=== PATIENT | male | born 1935 | race Caucasian/White ===

== ENCOUNTER 2021-03-29 16:16 | Inpatient (IN) ==
[2021-03-29] MEDS: 0.9 % Sodium Chloride 1,000 ML IVC SCH ×2 (17:23→18:54)
[2021-03-29 17:55] LABS: Basophils % 0.2 %; Eosinophils % 0.2 %; Hemoglobin 8.7 g/dL (12.9-16.9); Immature Granulocytes % 1.4 % (0-4); Lymphocytes # 0.8 K/mcL (0.6-4.6); Lymphocytes % 6.6 %; Mean Corpuscular HGB Conc 32.2 g/dL (31.6-35.5); Mean Corpuscular Hemoglobin 33.5 pg (28.0-33.3); Mean Corpuscular Volume 103.8 fL (83.0-100.0); Mean Platelet Volume 9.9 fL (9.4-12.4); Monocytes # 0.5 K/mcL (0.0-1.3); Monocytes % 4.2 %; Neutrophils # 10.2 K/mcL (1.6-8.9); Nucleated Red Blood Cells 0.3 /100 WBC (0); Platelet Count 123 K/mcL (140-400); Red Cell Distribution Width 19.9 % (11.5-14.5); Segmented Neutrophils % 87.4 %; White Blood Count 11.6 K/mcL (4.3-11.1)
[2021-03-29 18:02] LABS: INR 3.8; Prothrombin Time 42.8 Seconds (9.4-12.1)
[2021-03-29 18:04] LABS: VBG HCO3 26 mEq/L (21-27); VBG PCO2 29 mmHg (41-51); VBG PH 7.55 pH Units (7.32-7.42); VBG PO2 19 mmHg (25-50)
[2021-03-29 18:05] LABS: Activated Partial Thrombo Time 36.8 Seconds (26.0-36.0)
[2021-03-29 18:25] LABS: Alanine Aminotransferase 30 Units/L (7-52); Albumin 3.4 g/dL (3.5-5.7); Albumin/Globulin Ratio 1.2 (1.1-2.2); Alkaline Phosphatase 70 Units/L (34-104); Aspartate Amino Transferase 28 Units/L (13-39); BUN/Creatinine Ratio 20 (6-26); Bilirubin,Direct 0.5 mg/dL (0.0-0.2); Bilirubin,Indirect 1.3 mg/dL (0.0-1.0); Bilirubin,Total 1.8 mg/dL (0.3-1.0); Blood Urea Nitrogen 35 mg/dL (8-23); Calcium 8.4 mg/dL (8.6-10.3); Carbon Dioxide 25 mEq/L (23-29); Chloride 98 mEq/L (98-107); Globulin 2.8 g/dL (2.4-3.5); Glucose 171 mg/dL (70-105); Lipase 23 Units/L (11-82); Magnesium 2.2 mg/dL (1.6-2.6); Osmolality,Calculated 292 (280-300); Phosphorous 3.5 mg/dL (2.7-4.5); Sodium 135 mEq/L (136-145); Total Protein 6.2 g/dL (6.4-8.9); Troponin I < 0.03 ng/mL (< 0.04); eGFR For African Americans 46 (> 60); eGFR For Non-African Americans 38 (> 60)
[2021-03-29 19:55] LABS: Bilirubin,Urine Negative (Negative); Blood,Urine Negative (Negative); Clarity,Urine Clear (Clear); Color,Urine Yellow (Yellow); Glucose,Urine (UA) Normal (Normal); Ketones,Urine Negative (Negative); Leukocyte Esterase,Urine Negative (Negative); Nitrite,Urine Negative (Negative); Protein,Urine Trace mg/dL (Neg-Trace); Specific Gravity,Urine 1.015 (1.010-1.025)
[2021-03-29] MEDS ORDERED: Pantoprazole 40 MG VIAL IVP ONE (20:26)
[2021-03-29] MEDS ORDERED: Melatonin 3 MG TABLET PO PRN (21:20)
[2021-03-29] MEDS ORDERED: Ondansetron 4 MG/2 ML VIAL IVP PRN (21:20)
[2021-03-29] MEDS ORDERED: Acetaminophen 325 MG TABLET PO PRN (21:20)
[2021-03-29] MEDS ORDERED: Naloxone 0.4 MG/ML INJ IVP PRN (21:20)
[2021-03-29] MEDS ORDERED: *HR* HYDROcodone/Acet 5/325 mg TABLET PO PRN (21:20)
[2021-03-29] MEDS: Metoprolol XL (24 HR) Succ 25 MG TAB.ER.24H PO SCH (23:37)
[2021-03-29] MEDS: Ringers Solution, Lactated 1,000 ML IVC SCH (23:47)
[2021-03-30 03:15] LABS: Basophils % 0.1 %; Eosinophils % 0.3 %; Hematocrit 22.2 % (37.5-50.1); Hemoglobin 7.2 g/dL (12.9-16.9); Immature Granulocytes % 1.4 % (0-4); Immature Reticulocyte % 37.3 % (11.0-38.0); Lymphocytes # 0.8 K/mcL (0.6-4.6); Lymphocytes % 8.9 %; Mean Corpuscular HGB Conc 32.4 g/dL (31.6-35.5); Mean Corpuscular Volume 104.7 fL (83.0-100.0); Mean Platelet Volume 10.6 fL (9.4-12.4); Monocytes # 0.4 K/mcL (0.0-1.3); Monocytes % 4.4 %; Neutrophils # 7.4 K/mcL (1.6-8.9); Nucleated Red Blood Cells 0.2 /100 WBC (0); Platelet Count 109 K/mcL (140-400); Red Blood Count 2.12 M/mcL (4.19-5.50); Red Cell Distribution Width 20.2 % (11.5-14.5); Retculocyte # 0.05 M/mcL (0.05-0.10); Reticulocyte % 2.4 % (1.6-2.8); Segmented Neutrophils % 84.9 %; White Blood Count 8.7 K/mcL (4.3-11.1)
[2021-03-30 03:22] LABS: INR 2.4; Prothrombin Time 27.4 Seconds (9.4-12.1)
[2021-03-30 03:35] LABS: Albumin 2.7 g/dL (3.5-5.7); Albumin/Globulin Ratio 1.2 (1.1-2.2); Bilirubin,Total 1.4 mg/dL (0.3-1.0); Calcium 7.5 mg/dL (8.6-10.3); Chol/HDL Ratio 4.4 (0-4.9); Globulin 2.3 g/dL (2.4-3.5); Magnesium 2.1 mg/dL (1.6-2.6); Phosphorous 2.7 mg/dL (2.7-4.5)
[2021-03-30 03:43] LABS: % Iron Saturation 28 % (20-55); Iron 57 mcg/dL (65-175); Lactate Dehydrogenase 186 Units/L (140-271); Transferrin 148 mg/dL (203-362)
[2021-03-30 03:55] LABS: Ferritin 98 ng/mL (20-250)
[2021-03-30] MEDS: Pantoprazole 40 MG VIAL IVP SCH ×2 (06:20→17:58)
[2021-03-30] MEDS ORDERED: D5% in Water 1,000 ML IVC PRN (07:31)
[2021-03-30] MEDS ORDERED: *HR* Dextrose 50 % in Water (Vial) 50 ML VIAL IVP PRN (07:31)
[2021-03-30] MEDS ORDERED: Dextrose Gel 15 GM/37.5 ML TUBE PO PRN ×2 (07:31)
[2021-03-30] MEDS: Metoprolol XL (24 HR) Succ 25 MG TAB.ER.24H PO SCH ×2 (08:00→21:58)
[2021-03-30] MEDS: Folic Acid 1 MG TABLET PO SCH ×2 (08:00→21:56)
[2021-03-30] MEDS: *HR* Rivaroxaban 15 MG TABLET PO SCH (08:00)
[2021-03-30] MEDS: Ranolazine 500 MG TAB.ER.12H PO SCH ×2 (08:00→21:56)
[2021-03-30] MEDS: Ringers Solution, Lactated 1,000 ML IVC SCH (08:01)
[2021-03-30] MEDS: Torsemide 20 MG TABLET PO SCH (08:09)
[2021-03-30] MEDS: CYCLOSPORINE OP SCH (08:09)
[2021-03-30] MEDS: Sennosides/Docusate Sodium TABLET PO SCH (10:47)
[2021-03-30] MEDS: Insulin LISPRO 300 UNITS/3 ML VIAL SUBQ SCH ×2 (11:50→17:51)
[2021-03-30] MEDS ORDERED: Perflutren Lipid Microsphere 1.3 ML in 0.9 % Sodium Chloride 8.7 ML IVP PRN (11:58)
[2021-03-30 12:14] LABS: Adenovirus Not Detected (Not Detect); Bordetella Pertussis Not Detected (Not Detect); Chlamydophila pneumoniae Not Detected (Not Detect); Coronavirus 229E Not Detected (Not Detect); Coronavirus HKU1 Not Detected (Not Detect); Coronavirus NL63 Not Detected (Not Detect); Coronavirus OC43 Not Detected (Not Detect); Human Metapneumovirus Not Detected (Not Detect); Human Rhinovirus/Enterovirus Not Detected (Not Detect); Influenza A Subtype 2009 H1 Not Detected (Not Detect); Influenza B Not Detected (Not Detect); Parainfluenza Virus 1 Not Detected (Not Detect); Parainfluenza Virus 2 Not Detected (Not Detect); Parainfluenza Virus 3 Not Detected (Not Detect); Parainfluenza Virus 4 Not Detected (Not Detect); Respiratory Syncytial Virus Not Detected (Not Detect); SARS-CoV-2 Not Detected (Not Detect)
[2021-03-30 12:15] LABS: Mycoplasma pneumoniae Not Detected (Not Detect)
[2021-03-30 12:24] LABS: Acinetobacter baumannii by PCR Not Detected (Not Detect); Candida albicans by PCR Not Detected (Not Detect); Candida glabrata by PCR Not Detected (Not Detect); Candida krusei by PCR Not Detected (Not Detect); Candida parapsilosis by PCR Not Detected (Not Detect); Candida tropicalis by PCR Not Detected (Not Detect); Enterobacter cloacae Cmplx PCR Not Detected (Not Detect); Enterobacteriaceae by PCR Not Detected (Not Detect); Enterococcus by PCR Not Detected (Not Detect); Escherichia coli by PCR Not Detected (Not Detect); Klebsiella oxytoca by PCR Not Detected (Not Detect); Klebsiella pneumoniae by PCR Not Detected (Not Detect); Proteus by PCR Not Detected (Not Detect); Pseudomonas aeruginosa by PCR Not Detected (Not Detect); Serratia marcescens by PCR Not Detected (Not Detect); Staphylococcus aureus by PCR Not Detected (Not Detect); Staphylococcus by PCR Not Detected (Not Detect); Streptococcus agalactiae(B)PCR Not Detected (Not Detect); Streptococcus by PCR DETECTED (Not Detect); Streptococcus pneumoniae PCR Not Detected (Not Detect); Streptococcus pyogenes (A) PCR Not Detected (Not Detect)
[2021-03-30] MEDS ORDERED: Lidocaine -MPF 2% 5 ML VIAL SQ ONE (12:59)
[2021-03-30] MEDS ORDERED: *HR* Propofol 200 MG/20 ML VIAL IVP ONE (12:59)
[2021-03-30] MEDS: Piperacillin/Tazobactam 3.375 GM in 0.9 % Sodium Chloride Mini Bag 100 ML IVPB SCH ×2 (14:05→21:56)
[2021-03-30] MEDS ORDERED: E-Z-HD (BARIUM SULF) SUSPENSION PO ONE (14:43)
[2021-03-30] MEDS ORDERED: E-Z-PAQUE (BARIUM SULF) SUSP 1 BOTTLE PO ONE (14:43)
[2021-03-30 16:52] LABS: Hematocrit 25.2 % (37.5-50.1)
[2021-03-30] MEDS ORDERED: Saline Nasal Spray 44 ML BOTTLE NS PRN (17:31)
[2021-03-30 23:08] LABS: Hematocrit 22.8 % (37.5-50.1); Hemoglobin 7.1 g/dL (12.9-16.9)
[2021-03-31] MEDS: Insulin LISPRO 300 UNITS/3 ML VIAL SUBQ SCH ×4 (00:07→17:12)
[2021-03-31 03:23] LABS: Alanine Aminotransferase 24 Units/L (7-52); Albumin 2.6 g/dL (3.5-5.7); Albumin/Globulin Ratio 1.1 (1.1-2.2); Alkaline Phosphatase 52 Units/L (34-104); Aspartate Amino Transferase 22 Units/L (13-39); BUN/Creatinine Ratio 19 (6-26); Bilirubin,Total 1.8 mg/dL (0.3-1.0); Blood Urea Nitrogen 24 mg/dL (8-23); Calcium 7.7 mg/dL (8.6-10.3); Carbon Dioxide 27 mEq/L (23-29); Chloride 107 mEq/L (98-107); Globulin 2.4 g/dL (2.4-3.5); Glucose 79 mg/dL (70-105); Magnesium 2.1 mg/dL (1.6-2.6); Osmolality,Calculated 293 (280-300); Phosphorous 3.4 mg/dL (2.7-4.5); Potassium 3.8 mEq/L (3.5-5.1); Sodium 140 mEq/L (136-145); eGFR For African Americans > 60 (> 60); eGFR For Non-African Americans 53 (> 60)
[2021-03-31] MEDS: Piperacillin/Tazobactam 3.375 GM in 0.9 % Sodium Chloride Mini Bag 100 ML IVPB SCH (04:13)
[2021-03-31] MEDS: Pantoprazole 40 MG VIAL IVP SCH (04:15)
[2021-03-31 08:17] LABS: Hematocrit 23.5 % (37.5-50.1); Hemoglobin 7.3 g/dL (12.9-16.9)
[2021-03-31] MEDS: Metoprolol XL (24 HR) Succ 25 MG TAB.ER.24H PO SCH ×2 (09:33→20:15)
[2021-03-31] MEDS: CYCLOSPORINE OP SCH (09:34)
[2021-03-31] MEDS: Ranolazine 500 MG TAB.ER.12H PO SCH ×2 (09:34→20:15)
[2021-03-31] MEDS: Folic Acid 1 MG TABLET PO SCH ×2 (09:34→20:15)
[2021-03-31] MEDS: Sennosides/Docusate Sodium TABLET PO SCH (09:34)
[2021-03-31] MEDS: cefTRIAXone 2,000 MG in Water for inj. (sterile) 20 ML IVP SCH (11:34)
[2021-04-01] MEDS: Insulin LISPRO 300 UNITS/3 ML VIAL SUBQ SCH ×4 (00:02→17:40)
[2021-04-01 04:21] LABS: Basophils % 0.2 %; Eosinophils % 1.5 %; Immature Granulocytes % 1.3 % (0-4)
[2021-04-01 04:23] LABS: Eosinophils # 0.1 K/mcL (0.0-0.6); Hematocrit 22.1 % (37.5-50.1); Immature Platelets 2.2 % (1.1-6.1); Lymphocytes # 0.9 K/mcL (0.6-4.6); Lymphocytes % 20.8 %; Mean Corpuscular HGB Conc 31.7 g/dL (31.6-35.5); Mean Corpuscular Volume 107.3 fL (83.0-100.0); Mean Platelet Volume 10.2 fL (9.4-12.4); Monocytes # 0.3 K/mcL (0.0-1.3); Monocytes % 7.5 %; Neutrophils # 3.1 K/mcL (1.6-8.9); Platelet Count 101 K/mcL (140-400); Red Blood Count 2.06 M/mcL (4.19-5.50); Red Cell Distribution Width 20.3 % (11.5-14.5); Segmented Neutrophils % 68.7 %; White Blood Count 4.5 K/mcL (4.3-11.1)
[2021-04-01 05:03] LABS: BUN/Creatinine Ratio 18 (6-26); Blood Urea Nitrogen 22 mg/dL (8-23); C-Reactive Protein 22 mg/L (Less than 10); Calcium 7.7 mg/dL (8.6-10.3); Carbon Dioxide 27 mEq/L (23-29); Chloride 109 mEq/L (98-107); Glucose 116 mg/dL (70-105); Magnesium 2.2 mg/dL (1.6-2.6); Osmolality,Calculated 294 (280-300); Phosphorous 2.9 mg/dL (2.7-4.5); Sodium 140 mEq/L (136-145); eGFR For African Americans > 60 (> 60); eGFR For Non-African Americans 58 (> 60)
[2021-04-01] MEDS: Sennosides/Docusate Sodium TABLET PO SCH (08:00)
[2021-04-01] MEDS: lisinopriL 5 MG TABLET PO SCH (08:01)
[2021-04-01] MEDS: Folic Acid 1 MG TABLET PO SCH ×2 (08:01→20:11)
[2021-04-01] MEDS: *HR* Rivaroxaban 15 MG TABLET PO SCH (08:01)
[2021-04-01] MEDS: Ranolazine 500 MG TAB.ER.12H PO SCH ×2 (08:01→20:11)
[2021-04-01] MEDS: CYCLOSPORINE OP SCH (08:02)
[2021-04-01] MEDS: Metoprolol XL (24 HR) Succ 25 MG TAB.ER.24H PO SCH ×2 (08:02→20:16)
[2021-04-01] MEDS: Torsemide 20 MG TABLET PO SCH (09:21)
[2021-04-01] MEDS: cefTRIAXone 2,000 MG in Water for inj. (sterile) 20 ML IVP SCH (11:31)
[2021-04-02] MEDS: Insulin LISPRO 300 UNITS/3 ML VIAL SUBQ SCH ×3 (01:29→12:08)
[2021-04-02 02:02] LABS: Basophils % 0.2 %; Mean Corpuscular HGB Conc 30.9 g/dL (31.6-35.5); Red Cell Distribution Width 20.5 % (11.5-14.5)
[2021-04-02 02:05] LABS: Eosinophils # 0.1 K/mcL (0.0-0.6); Eosinophils % 2.1 %; Hematocrit 23.3 % (37.5-50.1); Hemoglobin 7.2 g/dL (12.9-16.9); Immature Granulocytes % 1.4 % (0-4); Immature Platelets 2.9 % (1.1-6.1); Lymphocytes % 17.7 %; Mean Corpuscular Hemoglobin 33.2 pg (28.0-33.3); Mean Corpuscular Volume 107.4 fL (83.0-100.0); Mean Platelet Volume 10.7 fL (9.4-12.4); Monocytes # 0.3 K/mcL (0.0-1.3); Monocytes % 5.6 %; Neutrophils # 4.2 K/mcL (1.6-8.9); Red Blood Count 2.17 M/mcL (4.19-5.50); White Blood Count 5.8 K/mcL (4.3-11.1)
[2021-04-02 02:08] LABS: Platelet Count 96 K/mcL (140-400)
[2021-04-02 02:25] LABS: BUN/Creatinine Ratio 18 (6-26); Blood Urea Nitrogen 19 mg/dL (8-23); Calcium 7.6 mg/dL (8.6-10.3); Carbon Dioxide 28 mEq/L (23-29); Chloride 105 mEq/L (98-107); Glucose 120 mg/dL (70-105); Magnesium 1.9 mg/dL (1.6-2.6); Osmolality,Calculated 289 (280-300); Phosphorous 2.8 mg/dL (2.7-4.5); Sodium 138 mEq/L (136-145); eGFR For African Americans > 60 (> 60); eGFR For Non-African Americans > 60 (> 60)
[2021-04-02] MEDS: Sennosides/Docusate Sodium TABLET PO SCH (09:21)
[2021-04-02] MEDS: Metoprolol XL (24 HR) Succ 25 MG TAB.ER.24H PO SCH ×2 (09:21→20:10)
[2021-04-02] MEDS: Torsemide 20 MG TABLET PO SCH (09:22)
[2021-04-02] MEDS: Folic Acid 1 MG TABLET PO SCH ×2 (09:22→20:10)
[2021-04-02] MEDS: lisinopriL 5 MG TABLET PO SCH (09:22)
[2021-04-02] MEDS: Ranolazine 500 MG TAB.ER.12H PO SCH ×2 (09:22→20:10)
[2021-04-02] MEDS: *HR* Rivaroxaban 15 MG TABLET PO SCH (09:22)
[2021-04-02] MEDS: Artificial Tears SOLN 15 ML BOTTLE OP SCH (09:24)
[2021-04-02] MEDS: cefTRIAXone 2,000 MG in Water for inj. (sterile) 20 ML IVP SCH (12:07)
[2021-04-02] MEDS ORDERED: polyethylene glycoL 3350 17 GM POWD.PACK PO PRN (12:14)
[2021-04-03] MEDS: Folic Acid 1 MG TABLET PO SCH ×2 (09:14→21:10)
[2021-04-03] MEDS: Ranolazine 500 MG TAB.ER.12H PO SCH ×2 (09:14→21:10)
[2021-04-03] MEDS: Torsemide 20 MG TABLET PO SCH (09:14)
[2021-04-03] MEDS: Metoprolol XL (24 HR) Succ 25 MG TAB.ER.24H PO SCH ×2 (09:15→21:10)
[2021-04-03] MEDS: Sennosides/Docusate Sodium TABLET PO SCH (09:15)
[2021-04-03] MEDS: lisinopriL 5 MG TABLET PO SCH (09:15)
[2021-04-03] MEDS: Artificial Tears SOLN 15 ML BOTTLE OP SCH (09:20)
[2021-04-03] MEDS: cefTRIAXone 2,000 MG in Water for inj. (sterile) 20 ML IVP SCH (11:28)
[2021-04-03] MEDS: *HR* Rivaroxaban 15 MG TABLET PO SCH (16:11)
[2021-04-04 03:38] LABS: Basophils % 0.4 %; Eosinophils # 0.1 K/mcL (0.0-0.6); Eosinophils % 1.1 %; Hematocrit 28.4 % (37.5-50.1); Hemoglobin 8.7 g/dL (12.9-16.9); Lymphocytes # 1.3 K/mcL (0.6-4.6); Lymphocytes % 15.9 %; Mean Corpuscular HGB Conc 30.6 g/dL (31.6-35.5); Mean Corpuscular Volume 107.6 fL (83.0-100.0); Mean Platelet Volume 9.7 fL (9.4-12.4); Monocytes # 0.4 K/mcL (0.0-1.3); Monocytes % 5.5 %; Platelet Count 149 K/mcL (140-400); Red Blood Count 2.64 M/mcL (4.19-5.50); Red Cell Distribution Width 20.5 % (11.5-14.5); Segmented Neutrophils % 76.1 %; White Blood Count 7.9 K/mcL (4.3-11.1)
[2021-04-04 03:59] LABS: BUN/Creatinine Ratio 14 (6-26); Blood Urea Nitrogen 15 mg/dL (8-23); Calcium 8.2 mg/dL (8.6-10.3); Carbon Dioxide 27 mEq/L (23-29); Chloride 101 mEq/L (98-107); Glucose 184 mg/dL (70-105); Magnesium 1.8 mg/dL (1.6-2.6); Osmolality,Calculated 288 (280-300); Phosphorous 3.1 mg/dL (2.7-4.5); Potassium 3.7 mEq/L (3.5-5.1); Sodium 136 mEq/L (136-145); eGFR For African Americans > 60 (> 60); eGFR For Non-African Americans > 60 (> 60)
[2021-04-04 09:36] LABS: INR 1.5; Prothrombin Time 17.3 Seconds (9.4-12.1)
[2021-04-04] MEDS ORDERED: *HR* Propofol 200 MG/20 ML VIAL IVP ONE (11:53)
[2021-04-04] MEDS ORDERED: Lidocaine -MPF 2% 5 ML VIAL SQ ONE (11:53)
[2021-04-04] MEDS: Ranolazine 500 MG TAB.ER.12H PO SCH ×2 (12:36→20:06)
[2021-04-04] MEDS: Metoprolol XL (24 HR) Succ 25 MG TAB.ER.24H PO SCH ×2 (12:36→20:06)
[2021-04-04] MEDS: Sennosides/Docusate Sodium TABLET PO SCH (12:36)
[2021-04-04] MEDS: Folic Acid 1 MG TABLET PO SCH ×2 (12:36→20:06)
[2021-04-04] MEDS: Torsemide 20 MG TABLET PO SCH (12:36)
[2021-04-04] MEDS: lisinopriL 5 MG TABLET PO SCH (12:37)
[2021-04-04] MEDS: cefTRIAXone 2,000 MG in Water for inj. (sterile) 20 ML IVP SCH (14:38)
[2021-04-04] MEDS: Artificial Tears SOLN 15 ML BOTTLE OP SCH (14:40)
[2021-04-04] MEDS: *HR* Rivaroxaban 15 MG TABLET PO SCH (16:09)
[2021-04-05 01:38] LABS: Hematocrit 23.5 % (37.5-50.1); Hemoglobin 7.4 g/dL (12.9-16.9); Mean Corpuscular HGB Conc 31.5 g/dL (31.6-35.5); Mean Corpuscular Hemoglobin 33.5 pg (28.0-33.3); Mean Corpuscular Volume 106.3 fL (83.0-100.0); Mean Platelet Volume 9.6 fL (9.4-12.4); Platelet Count 129 K/mcL (140-400); Red Blood Count 2.21 M/mcL (4.19-5.50); Red Cell Distribution Width 20.1 % (11.5-14.5); White Blood Count 5.7 K/mcL (4.3-11.1)
[2021-04-05 02:00] LABS: BUN/Creatinine Ratio 14 (6-26); Blood Urea Nitrogen 14 mg/dL (8-23); Carbon Dioxide 27 mEq/L (23-29); Chloride 106 mEq/L (98-107); Glucose 109 mg/dL (70-105); Osmolality,Calculated 289 (280-300); Potassium 3.9 mEq/L (3.5-5.1); Sodium 139 mEq/L (136-145); eGFR For African Americans > 60 (> 60); eGFR For Non-African Americans > 60 (> 60)
[2021-04-05] MEDS: Artificial Tears SOLN 15 ML BOTTLE OP SCH (09:12)
[2021-04-05] MEDS: Ranolazine 500 MG TAB.ER.12H PO SCH ×2 (09:13→21:37)
[2021-04-05] MEDS: Sennosides/Docusate Sodium TABLET PO SCH (09:13)
[2021-04-05] MEDS: Folic Acid 1 MG TABLET PO SCH ×2 (09:13→21:37)
[2021-04-05] MEDS: Metoprolol XL (24 HR) Succ 25 MG TAB.ER.24H PO SCH ×2 (09:13→21:37)
[2021-04-05] MEDS: lisinopriL 5 MG TABLET PO SCH (09:13)
[2021-04-05] MEDS: Torsemide 20 MG TABLET PO SCH (09:14)
[2021-04-05] MEDS: cefTRIAXone 2,000 MG in Water for inj. (sterile) 20 ML IVP SCH (13:14)
[2021-04-05] MEDS: *HR* Rivaroxaban 15 MG TABLET PO SCH (18:00)
[2021-04-06 05:39] LABS: Hematocrit 22.7 % (37.5-50.1); Hemoglobin 7.1 g/dL (12.9-16.9); Mean Corpuscular HGB Conc 31.3 g/dL (31.6-35.5); Mean Corpuscular Hemoglobin 33.3 pg (28.0-33.3); Mean Corpuscular Volume 106.6 fL (83.0-100.0); Mean Platelet Volume 10.1 fL (9.4-12.4); Platelet Count 135 K/mcL (140-400); Red Blood Count 2.13 M/mcL (4.19-5.50); Red Cell Distribution Width 20.4 % (11.5-14.5); White Blood Count 6.3 K/mcL (4.3-11.1)
[2021-04-06] MEDS ORDERED: 0.9 % Sodium Chloride 250 ML IVC SCH (07:15)
[2021-04-06] MEDS: lisinopriL 5 MG TABLET PO SCH (08:05)
[2021-04-06] MEDS: Metoprolol XL (24 HR) Succ 25 MG TAB.ER.24H PO SCH ×2 (08:05→21:13)
[2021-04-06] MEDS: Sennosides/Docusate Sodium TABLET PO SCH (08:05)
[2021-04-06] MEDS: Folic Acid 1 MG TABLET PO SCH ×2 (08:05→21:13)
[2021-04-06] MEDS: Ranolazine 500 MG TAB.ER.12H PO SCH ×2 (08:05→21:13)
[2021-04-06] MEDS: Artificial Tears SOLN 15 ML BOTTLE OP SCH (08:05)
[2021-04-06] MEDS: cefTRIAXone 2,000 MG in Water for inj. (sterile) 20 ML IVP SCH (13:23)
[2021-04-06] MEDS: *HR* Rivaroxaban 15 MG TABLET PO SCH (16:55)
[2021-04-07] MEDS: Ranolazine 500 MG TAB.ER.12H PO SCH (08:59)
[2021-04-07] MEDS: Metoprolol XL (24 HR) Succ 25 MG TAB.ER.24H PO SCH (08:59)
[2021-04-07] MEDS: Folic Acid 1 MG TABLET PO SCH (08:59)
[2021-04-07] MEDS: lisinopriL 5 MG TABLET PO SCH (08:59)
[2021-04-07] MEDS: Sennosides/Docusate Sodium TABLET PO SCH (08:59)
[2021-04-07] MEDS ORDERED: cefTRIAXone 2,000 MG in Water for inj. (sterile) 20 ML IVP SCH (09:00)
[2021-04-07 11:43] VITALS: BP 128/64
[2021-04-07 12:03] LABS: Hematocrit 25.9 % (37.5-50.1); Hemoglobin 8.1 g/dL (12.9-16.9); Mean Corpuscular HGB Conc 31.3 g/dL (31.6-35.5); Mean Corpuscular Hemoglobin 32.4 pg (28.0-33.3); Mean Corpuscular Volume 103.6 fL (83.0-100.0); Mean Platelet Volume 10.1 fL (9.4-12.4); Platelet Count 143 K/mcL (140-400); Red Cell Distribution Width 22.1 % (11.5-14.5); White Blood Count 6.6 K/mcL (4.3-11.1)
[2021-04-07 12:22] LABS: BUN/Creatinine Ratio 15 (6-26); Blood Urea Nitrogen 17 mg/dL (8-23); Carbon Dioxide 28 mEq/L (23-29); Chloride 103 mEq/L (98-107); Glucose 133 mg/dL (70-105); Osmolality,Calculated 283 (280-300); Potassium 4.5 mEq/L (3.5-5.1); Sodium 135 mEq/L (136-145); eGFR For African Americans > 60 (> 60); eGFR For Non-African Americans > 60 (> 60)
== END 2021-04-07 14:00 | disposition home or self-care (01) | DRG 872 ==
LOC: 2ANU 16:16 → EMEROOARM 16:16 → SUATTDRO 20:33 → 2ANU 21:41 → SUATTDRO 03-31 13:27
PROVIDERS: ADMIT Internal Medicine; ATTEND General Practice
PROC: ENDOEBX (2021-04-04 12:00)

== ENCOUNTER 2022-02-07 17:48 | Observation (INO) ==
[2022-02-07] MEDS ORDERED: Aspirin 81 MG TAB.CHEW PO ONE (17:51)
[2022-02-07 18:08] LABS: Basophils % 0.4 %; Eosinophils # 0.1 K/mcL (0.0-0.6); Hematocrit 30.9 % (37.5-50.1); Hemoglobin 9.9 g/dL (12.9-16.9); Immature Granulocytes % 1.1 % (0-4); Lymphocytes # 1.1 K/mcL (0.6-4.6); Lymphocytes % 15.2 %; Mean Corpuscular Hemoglobin 35.9 pg (28.0-33.3); Mean Platelet Volume 10.7 fL (9.4-12.4); Monocytes # 0.5 K/mcL (0.0-1.3); Monocytes % 7.5 %; Neutrophils # 5.3 K/mcL (1.6-8.9); Nucleated Red Blood Cells 0.4 /100 WBC (0); Platelet Count 147 K/mcL (140-400); Red Blood Count 2.76 M/mcL (4.19-5.50); Red Cell Distribution Width 21.9 % (11.5-14.5); Segmented Neutrophils % 74.8 %; White Blood Count 7.1 K/mcL (4.3-11.1)
[2022-02-07] MEDS ORDERED: Morphine Sulfate 2 MG/ML SYRINGE IVP STA (18:18)
[2022-02-07] MEDS ORDERED: Nitroglycerin 0.4 MG TAB.SUBL SL PRN (18:29)
[2022-02-07 18:34] LABS: BUN/Creatinine Ratio 17 (6-26); Blood Urea Nitrogen 21 mg/dL (8-23); Calcium 8.7 mg/dL (8.6-10.3); Carbon Dioxide 27 mEq/L (23-29); Chloride 106 mEq/L (98-107); Glucose 217 mg/dL (70-105); Osmolality,Calculated 298 (280-300); Potassium 4.5 mEq/L (3.5-5.1); Sodium 139 mEq/L (136-145); eGFR For African Americans > 60 (> 60); eGFR For Non-African Americans 56 (> 60)
[2022-02-07] MEDS ORDERED: Nitroglycerin 0.4 MG TAB.SUBL SL ONE (18:34)
[2022-02-07 18:35] LABS: Troponin I < 0.03 ng/mL (< 0.04)
[2022-02-07] MEDS ORDERED: *HR* Metoprolol 5 MG/5 ML VIAL IVP ONE (18:37)
[2022-02-07 19:19] LABS: Macrocytosis Present (Not Present); Platelet Estimate Normal (Normal)
[2022-02-07] MEDS ORDERED: *HR* Heparin 5,000 UNIT/ML VIAL IVP ONE (19:42)
[2022-02-07] MEDS ORDERED: *HR* Heparin 5,000 UNIT/ML VIAL IVP PRN ×2 (19:42)
[2022-02-07] MEDS ORDERED: Heparin 25,000UNIT/250ML 1/2NS 25,000 UNIT/250 ML IV.SOLN IVC SCH ×2 (19:45)
[2022-02-07 20:26] LABS: Hematocrit 27.8 % (37.5-50.1); Mean Corpuscular HGB Conc 32.4 g/dL (31.6-35.5); Mean Corpuscular Hemoglobin 36.9 pg (28.0-33.3); Mean Corpuscular Volume 113.9 fL (83.0-100.0); Mean Platelet Volume 10.5 fL (9.4-12.4); Platelet Count 137 K/mcL (140-400); Red Blood Count 2.44 M/mcL (4.19-5.50); Red Cell Distribution Width 22.1 % (11.5-14.5); White Blood Count 6.8 K/mcL (4.3-11.1)
[2022-02-07] MEDS ORDERED: Ondansetron 4 MG/2 ML VIAL IVP PRN (20:29)
[2022-02-07] MEDS ORDERED: Naloxone 0.4 MG/ML INJ IVP PRN (20:29)
[2022-02-07] MEDS ORDERED: Acetaminophen 325 MG TABLET PO PRN (20:29)
[2022-02-07 20:50] LABS: INR 2.9; Prothrombin Time 31.9 Seconds (9.4-12.1)
[2022-02-07 20:53] LABS: Activated Partial Thrombo Time 46.4 Seconds (26.0-36.0)
[2022-02-07 21:02] LABS: Heparin anti-factor XA UFH > 2.00 IU/mL (0.30-0.70)
[2022-02-08 02:15] LABS: Hematocrit 27.5 % (37.5-50.1); Hemoglobin 8.6 g/dL (12.9-16.9); Mean Corpuscular HGB Conc 31.3 g/dL (31.6-35.5); Mean Corpuscular Volume 111.8 fL (83.0-100.0); Mean Platelet Volume 11.5 fL (9.4-12.4); Platelet Count 142 K/mcL (140-400); Red Blood Count 2.46 M/mcL (4.19-5.50); Red Cell Distribution Width 21.9 % (11.5-14.5); White Blood Count 6.1 K/mcL (4.3-11.1)
[2022-02-08 02:26] LABS: BUN/Creatinine Ratio 20 (6-26); Blood Urea Nitrogen 21 mg/dL (8-23); Calcium 8.4 mg/dL (8.6-10.3); Carbon Dioxide 29 mEq/L (23-29); Chloride 109 mEq/L (98-107); Cholesterol 79 mg/dL (< 200); Glucose 91 mg/dL (70-105); HDL Cholesterol 39 mg/dL (40-59); LDL Cholesterol,Calculated 31 mg/dL (< 100); Osmolality,Calculated 295 (280-300); Potassium 4.3 mEq/L (3.5-5.1); Sodium 141 mEq/L (136-145); Triglycerides 45 mg/dL (< 150); eGFR For African Americans > 60 (> 60); eGFR For Non-African Americans > 60 (> 60)
[2022-02-08 02:30] LABS: Troponin I 1.05 ng/mL (< 0.04)
[2022-02-08] MEDS ORDERED: Nitroglycerin 0.4 MG TAB.SUBL SL PRN (02:40)
[2022-02-08] MEDS: Metoprolol XL (24 HR) Succ 25 MG TAB.ER.24H PO SCH ×2 (07:37→23:38)
[2022-02-08] MEDS: Torsemide 20 MG TABLET PO SCH (07:37)
[2022-02-08] MEDS ORDERED: Aspirin 81 MG TAB.CHEW PO SCH (09:00)
[2022-02-08] MEDS ORDERED: Perflutren Lipid Microsphere 1.3 ML in 0.9 % Sodium Chloride 8.7 ML IVP PRN (09:51)
[2022-02-08] MEDS: Isosorbide MONOnitrate (24 HR) 30 MG TAB.ER.24H PO SCH (11:47)
[2022-02-08] MEDS ORDERED: *HR* Heparin 5,000 UNIT/ML VIAL IVP PRN ×2 (13:00)
[2022-02-08] MEDS ORDERED: Heparin 25,000UNIT/250ML 1/2NS 25,000 UNIT/250 ML IV.SOLN IVC SCH (13:00)
[2022-02-09 01:54] LABS: Basophils % 0.5 %; Eosinophils # 0.2 K/mcL (0.0-0.6); Eosinophils % 3.1 %; Hematocrit 25.6 % (37.5-50.1); Hemoglobin 8.4 g/dL (12.9-16.9); Immature Granulocytes % 1.3 % (0-4); Lymphocytes % 23.7 %; Mean Corpuscular HGB Conc 32.8 g/dL (31.6-35.5); Mean Corpuscular Hemoglobin 36.4 pg (28.0-33.3); Mean Corpuscular Volume 110.8 fL (83.0-100.0); Monocytes # 0.6 K/mcL (0.0-1.3); Nucleated Red Blood Cells 0.7 /100 WBC (0); Platelet Count 144 K/mcL (140-400); Red Blood Count 2.31 M/mcL (4.19-5.50); Red Cell Distribution Width 22.3 % (11.5-14.5); Segmented Neutrophils % 61.4 %; White Blood Count 6.1 K/mcL (4.3-11.1)
[2022-02-09 02:04] LABS: Lymphocytes # 1.5 K/mcL (0.6-4.6); Neutrophils # 3.8 K/mcL (1.6-8.9)
[2022-02-09 02:14] LABS: BUN/Creatinine Ratio 21 (6-26); Blood Urea Nitrogen 21 mg/dL (8-23); Calcium 8.3 mg/dL (8.6-10.3); Carbon Dioxide 29 mEq/L (23-29); Chloride 107 mEq/L (98-107); Glucose 92 mg/dL (70-105); Magnesium 1.8 mg/dL (1.6-2.6); Osmolality,Calculated 293 (280-300); Potassium 3.8 mEq/L (3.5-5.1); Sodium 140 mEq/L (136-145); eGFR For African Americans > 60 (> 60); eGFR For Non-African Americans > 60 (> 60)
[2022-02-09 02:21] LABS: Anisocytosis 3+ (Not Present); Macrocytosis Present (Not Present)
[2022-02-09 02:22] LABS: Platelet Estimate Normal (Normal)
[2022-02-09 04:03] VITALS: O2SAT 96
[2022-02-09 06:35] VITALS: BP 135/74; PULSE 95; TEMP 98.1
[2022-02-09] MEDS ORDERED: Metoprolol XL (24 HR) Succ 25 MG TAB.ER.24H PO SCH (09:00)
[2022-02-09] MEDS ORDERED: Patient Taking Own Medication 1 EACH OP SCH (09:00)
[2022-02-09] MEDS: Isosorbide MONOnitrate (24 HR) 30 MG TAB.ER.24H PO SCH (09:54)
[2022-02-09] MEDS: Torsemide 20 MG TABLET PO SCH (09:54)
[2022-02-09] MEDS ORDERED: *HR* Heparin 5,000 UNIT/ML VIAL IVP PRN ×2 (20:00)
[2022-02-09] MEDS ORDERED: *HR* Rivaroxaban 15 MG TABLET PO SCH (20:00)
[2022-02-09] MEDS ORDERED: Heparin 25,000UNIT/250ML 1/2NS 25,000 UNIT/250 ML IV.SOLN IVC SCH (20:00)
== END 2022-02-09 14:00 | disposition home or self-care (01) ==
LOC: 2ANU 17:48 → EMEROOARM 17:48 → SUATTDRO 20:26 → 2ANU 21:12
PROVIDERS: ADMIT Internal Medicine; ATTEND Pharmacist